=== PATIENT | female | born 2000 | race African-American/Black ===

== ENCOUNTER 2020-09-15 12:59 | Outpatient (REF) | payer OTHER, SELFPAY ==
--- NOTE | 2020-09-15 13:09 | XR_ITS ---
EXAMINATION: XR CHEST CLINICAL INFORMATION: Cough COMPARISON: None TECHNIQUE: 2 views of the chest were obtained. FINDINGS: The lungs are clear. The vascularity is normal. There is no airspace consolidation or effusion. The heart is normal in size. The costophrenic sulci are clear. The hilar and mediastinal contours are normal. Bony structures are unremarkable. XR/XR chest 2V IMPRESSION: Unremarkable examination.
== END 2020-09-15 13:00 | disposition home or self-care (01) ==
LOC: HO.HMGCX 12:59
PROVIDERS: PCP Internal Medicine; Visit Provider Hospitalist
DX: R05 Cough (principal)
CPT/HCPCS: 71046